=== PATIENT | female | born 1990 | race Caucasian/White ===

== ENCOUNTER 2022-07-23 13:58 | Emergency (ER) | payer MEDICAID ==
[2022-07-23 14:14] VITALS: RESP 20; TEMP 98.1
[2022-07-23] MEDS ORDERED: KETOROLAC 15 MG/ML 1 ML VIAL IM STA (14:17)
[2022-07-23] MEDS ORDERED: diphenhydrAMINE 50 MG/ML 1 ML VIAL IVP STA (14:17)
[2022-07-23 15:21] LABS: Basophils # (A) 0.1 k/uL (0-0.2); Basophils % (A) 1 %; Eosinophils # (A) 0.2 k/uL (0-0.7); Eosinophils % (A) 2 %; HCT 38.9 % (34.0-46.0); HGB 12.5 gm/dL (11.4-16.0); Lymphocytes # (A) 2.9 k/uL (1.0-4.8); Lymphocytes % (A) 35 %; MCH 28.3 pg (25.0-35.0); MCHC 32.1 g/dL (31.0-37.0); Monocytes # (A) 0.3 k/uL (0-1.0); Monocytes % (A) 4 %; Neutrophils # (A) 4.6 k/uL (1.3-7.7); Neutrophils % (A) 56 %; Platelet Count 299 k/uL (150-450); RBC 4.42 m/uL (3.80-5.40); RDW 14.6 % (11.5-15.5); WBC 8.3 k/uL (3.8-10.6)
[2022-07-23 15:39] LABS: ALT 16 U/L (4-34); AST 21 U/L (14-36); African American GFR (CKD) >90 (>60 ml/min/1.73 sqM); Albumin 4.7 g/dL (3.5-5.0); Alkaline Phosphatase 76 U/L (38-126); Amylase 85 U/L (30-110); Anion Gap 14 mmol/L; Blood Urea Nitrogen 17 mg/dL (7-17); Calcium 9.4 mg/dL (8.4-10.2); Carbon Dioxide 22 mmol/L (22-30); Chloride 102 mmol/L (98-107); Glucose 95 mg/dL (74-99); Lipase 84 U/L (23-300); Non-African American GFR(CKD) >90 (>60 ml/min/1.73 sqM); Potassium 3.7 mmol/L (3.5-5.1); Sodium 138 mmol/L (137-145); Total Bilirubin 0.2 mg/dL (0.2-1.3); Total Protein 7.6 g/dL (6.3-8.2)
--- NOTE | 2022-07-23 15:51 | ED ---
Chest Pain HPI - General Chief Complaint: Chest Pain Stated Complaint: Chest pain Time Seen by Provider: 07/23/22 14:08 Source: patient, EMS, RN notes reviewed Mode of arrival: EMS Limitations: no limitations - History of Present Illness Initial Comments: This is a 32-year-old female who presents to the emergency department for chest pain. States that she has had intermittent centralized chest pain all day. Describes this as sharp and worse when she breathes. When this initially occurred she felt very short of breath, however this has since resolved. She has had chest pain in the past, but states that this is different. Her concern is that both of her parents had heart attacks in their late 30s. This was fatal for her father. Her mother is still alive but has had an additional 4 heart attacks. Patient is currently at [facility] for polysubstance abuse. EMS gave her aspirin and Zofran on route. Denies any fevers, chills, sore throat, cough, palpitations, abdominal pain, nausea, vomiting, diarrhea, back pain, or headaches. MD Complaint: chest pain Onset: during rest Pain Location: substernal Pain Radiation: none Quality: sharp Consistency: intermittent Treatments Prior to Arrival: aspirin - Related Data Home Medications Medication Instructions Recorded Confirmed Acetaminophen [Tylenol Arthritis] 650 mg PO Q4H PRN 07/23/22 07/23/22 Calcium, Magnesium, Zinc, With 1 tab PO TID PRN 07/23/22 07/23/22 Vitamin D3 Chlorpheniramine Maleate 4 mg PO Q4H PRN 07/23/22 07/23/22 [Chlor-Trimeton] Hyoscyamine Sulfate [Levsin] 0.125 mg PO QID PRN 07/23/22 07/23/22 Loperamide HCl [Imodium A-D] 4 mg PO QID PRN 07/23/22 07/23/22 Mirtazapine [Remeron] 15 - 30 mg PO HS PRN 07/23/22 07/23/22 Multivitamins, Thera [Multivitamin 1 tab PO DAILY 07/23/22 07/23/22 (formulary)] Thiamine [Vitamin B-1] 100 mg PO DAILY 07/23/22 07/23/22 buprenorphine HCL [Subutex] 4 mg SUBLINGUAL ONCE 07/23/22 07/23/22 cloNIDine HCL [Catapres] 0.1 mg PO Q4H PRN 07/23/22 07/23/22 ondansetron HCL [Zofran] 8 mg PO Q6H PRN 07/23/22 07/23/22 Allergies Allergy/AdvReac Type Severity Reaction Status Date / Time No Known Allergies Allergy Verified 07/23/22 15:46 Review of Systems ROS Statement: Those systems with pertinent positive or pertinent negative responses have been documented in the HPI. ROS Other: All systems not noted in ROS Statement are negative. EKG Findings - EKG Comments: EKG Findings:: Sinus rhythm. Ventricular rate 80 bpm, CO interval 145 ms, QRS duration 86 ms, QTC 430 milliseconds. Past Medical History Past Medical History: No Reported History History of Any Multi-Drug Resistant Organisms: None Reported Past Surgical History: Appendectomy, Section, Orthopedic Surgery, Tonsillectomy Past Psychological History: Anxiety, Bipolar, Depression Smoking Status: Current every day smoker Past Alcohol Use History: None Reported Past Drug Use History: Heroin, Methamphetamine General Exam Limitations: no limitations General appearance: alert, in no apparent distress Head exam: Present: atraumatic, normocephalic, normal inspection Respiratory exam: Present: normal lung sounds bilaterally. Absent: respiratory distress, wheezes, rales, rhonchi, stridor, chest wall tenderness Cardiovascular Exam: Present: regular rate, normal rhythm, normal heart sounds. Absent: systolic murmur, diastolic murmur, rubs, gallop, clicks Neurological exam: Present: alert, oriented X3, CN II-XII intact Psychiatric exam: Present: agitated. Absent: homicidal ideation, suicidal ideation Expanded Focused psych exam: Present: delusional Skin exam: Present: warm, dry, intact, normal color. Absent: rash Course Vital Signs 07/23/22 14:06 Temperature 98.1 F Pulse Rate 83 Respiratory 20 Rate Blood Pressure 111/68 O2 Sat by Pulse 100 Oximetry Chest Pain [facility] This is a 32-year-old female who presents to the emergency department for chest pain. Lab work was nonactionable. Troponin and d-dimer are negative. EKG reveals no signs of ischemia. Chest x-ray reveals no acute cardiopulmonary process. The patient's symptoms are not consistent with an acute coronary syndrome and her workup at this time does not reveal any signs of ACS. Patient was given Toradol, Benadryl, and Norflex with little to no relief. She was subsequently given an additional dose of Toradol with Solu-Medrol. Discussed with the patient that we have not identified any life-threatening issues at this point, and due to her history of polysubstance use and the fact that she is currently at [facility], we are unable to provide her with any stronger medication. Given her family history and polysubstance abuse, she is high risk. Cardiology follow-up was provided and the patient is instructed to make an appointment with them. Patient is somewhat confused, anxious, and delusional in the emergency department, states that she keeps hearing her daughter scream, however her daughter is not here. Return precautions reviewed in depth, the patient is instructed to return to the emergency department with any new, worsening, or concerning symptoms. Patient verbalized understanding. This case was discussed in detail with the attending ED physician. Presentation, findings, and treatment plan discussed in detail as well. Disposition Clinical Impression: Atypical chest pain Disposition: HOME SELF-CARE Instructions (If sedation given, give patient instructions): Chest Pain (ED) Additional Instructions: Return to the emergency department with any new, worsening, or concerning symptoms. Alternate with ibuprofen and Tylenol as needed for pain relief. Contact cardiology as listed below for a follow-up appointment to discuss additional testing as indicated due to your family history. Is patient prescribed a controlled substance at d/c from ED?: No Referrals: None,Stated [Primary Care Provider] - 1-2 days Venkatesh Mujica MD [STAFF PHYSICIAN] - 1-2 days
[2022-07-23 15:53] LABS: Appearance,Urine Cloudy (Clear); Bacteria,Urine Rare /hpf; Bilirubin,Urine Negative (Negative); Blood,Urine Negative (Negative); Color,Urine Colorless; Glucose,Urine (UA) Negative (Negative); Ketones,Urine Negative (Negative); Leukocyte Esterase,Urine Moderate (Negative); Nitrite,Urine Negative (Negative); Protein,Urine Negative (Negative); RBC,Urine 3 /hpf (0-5); Specific Gravity,Urine 1.007 (1.001-1.035); Squamous Epithelial Cell,Urine 31 /hpf (0-4); Urobilinogen,Urine <2.0 mg/dL (<2.0); WBC,Urine 1 /hpf (0-5)
[2022-07-23] MEDS ORDERED: ORPHENADRINE 30 MG/ML 2 ML VIAL IVP STA (15:54)
--- NOTE | 2022-07-23 16:12 | XR ---
EXAMINATION TYPE: XR chest 2V DATE OF EXAM: 07/23/2022 COMPARISON: NONE HISTORY: Chest pain TECHNIQUE: Frontal and lateral views of the chest are obtained. FINDINGS: There is no focal air space opacity. No evidence for pneumothorax. No pleural effusion. The cardiac silhouette size is within normal limits. The osseous structures are grossly intact. IMPRESSION: 1. No acute cardiopulmonary process.
[2022-07-23] MEDS ORDERED: methylPREDNISolone SOD SUCCI 125 MG/2 ML VIAL IV STA (17:14)
[2022-07-23] MEDS ORDERED: KETOROLAC 15 MG/ML 1 ML VIAL IVP STA (17:14)
[2022-07-23 17:46] VITALS: BP 118/76; PULSE 101
== END 2022-07-23 18:01 | disposition home or self-care (01) ==
LOC: EC 13:58
DX: R07.89 Other chest pain (principal); F31.9 Bipolar disorder, unspecified; F41.9 Anxiety disorder, unspecified; F17.200 Nicotine dependence, unspecified, uncomplicated; Z79.899 Other long term (current) drug therapy
CPT/HCPCS: 36415; 93005; 85379; 80053; 82150; 83690; 83735; 84484; 85025; 81001; 81025; 71046; 99285; 96374; 96375 ×3; 96372; J1200; J2360; J2930; J1885